=== PATIENT | female | born 2005 ===

== ENCOUNTER 2024-05-12 11:22 | Outpatient (CLI) | payer OTHER | END 2024-05-12 11:27 | disposition home or self-care (01) | LOC: PRENATAL 11:22 | PROVIDERS: ATTEND Obstetrics & Gynecology Maternal & Fetal Medicine | DX: O26.849 Uterine size-date discrepancy, unspecified trimester (principal); Z3A.15 15 weeks gestation of pregnancy ==

== ENCOUNTER 2024-06-09 15:03 | Outpatient (CLI) | payer OTHER | END 2024-06-09 15:04 | disposition home or self-care (01) | LOC: PRENATAL 15:03 | PROVIDERS: ATTEND Obstetrics & Gynecology Maternal & Fetal Medicine | DX: O35.9XX0 Maternal care for (suspected) fetal abnormality and damage, unspecified, not applicable or unspecified (principal); O35.3XX0 Maternal care for (suspected) damage to fetus from viral disease in mother, not applicable or unspecified; O44.02 Complete placenta previa NOS or without hemorrhage, second trimester; Z3A.19 19 weeks gestation of pregnancy; Z14.8 Genetic carrier of other disease ==

== ENCOUNTER 2024-09-08 15:10 | Outpatient (CLI) | payer OTHER | END 2024-09-08 15:11 | disposition home or self-care (01) | LOC: PRENATAL 15:10 | PROVIDERS: ATTEND Obstetrics & Gynecology Maternal & Fetal Medicine | DX: O26.849 Uterine size-date discrepancy, unspecified trimester (principal); O36.8199 Decreased fetal movements, unspecified trimester, other fetus; Z3A.32 32 weeks gestation of pregnancy ==